=== PATIENT | female | born 1970 | race Caucasian/White ===

== ENCOUNTER 2016-11-21 10:42 | Emergency (ER) | payer BC ==
[2016-11-21] MEDS ORDERED: Sodium Chloride 0.9% 1,000 ML PRIMARY IV ONE (11:07)
[2016-11-21] MEDS ORDERED: NORMAL SALINE 10 ML SYRINGE FLUSH IVP PRN (11:07)
[2016-11-21] MEDS ORDERED: LORazepam 2 MG/1 ML VIAL IVP ONE (11:10)
[2016-11-21 11:15] VITALS: RESP 20
[2016-11-21 11:26] LABS: BASOPHILS # (AUTO) 0.04 10*3/UL; BASOPHILS % (AUTO) 0.5 % (0-1); EOSINOPHILS # (AUTO) 0.08 10*3/UL; EOSINOPHILS % (AUTO) 0.9 % (0-8); HEMATOCRIT 37.4 % (37.0-47.0); HEMOGLOBIN 11.9 g/dL (12.0-16.0); LYMPHOCYTES # (AUTO) 2.15 10*3/uL; MEAN CORPUSCULAR HEMOGLOBIN 22.2 PG (27-31); MEAN CORPUSCULAR HGB CONC 31.8 g/dL (33-37); MEAN CORPUSCULAR VOLUME 69.6 FL (81-99); MEAN PLATELET VOLUME 9.8 FL (7.4-12.2); MONOCYTES # (AUTO) 0.46 10*3/UL (0.3-0.8); MONOCYTES % (AUTO) 5.3 % (5-15); NEUTROPHILS # (AUTO) 5.96 10*3/UL; NEUTROPHILS % (AUTO) 68.4 % (50-80); RED BLOOD COUNT 5.37 10^6/uL (4.20-5.40)
[2016-11-21 11:28] LABS: PLATELET MORPHOLOGY COMMENT NORMAL MORPHOLOGY (NORM); RBC MORPHOLOGY COMMENT NORMAL MORPHOLOGY (NORM); WBC MORPHOLOGY COMMENT NORMAL MORPHOLOGY (NORM)
[2016-11-21 11:33] LABS: BLOOD UREA NITROGEN 11 mg/dL (7-22); BUN/CREATININE RATIO 18.33 (6-20); CALCIUM 9.2 mg/dL (8.7-10.7); EST GLOMERULAR FILTRATION > 60 (>60 ml/min/1.73m(2)); SERUM ALBUMIN 4.4 g/dL (3.5-4.8)
--- NOTE | 2016-11-21 11:41 | EKG ---
[address] [address] Measurements Intervals [place] Rate: 85 P: 58 CT: 196 QRS: 126 QRSD: 103 T: 79 QT: 430 QTc: 472 Interpretive Statements SINUS RHYTHM POSSIBLE LEFT ATRIAL ENLARGEMENT INDETERMINATE AXIS PROLONGED QT INTERVAL No previous ECG available for comparison Electronically Signed On 11-21-16 12:50:02 MDT by Adarsh Perez [id number]
[2016-11-21 12:13] LABS: BILIRUBIN,URINE NEGATIVE (NEG); CLARITY,URINE Slightly Cloudy (CLEAR); COLOR,URINE YELLOW; GLUCOSE, URINE (UA) NEGATIVE (NEG); NITRATE,URINE NEGATIVE (NEG); OCCULT BLOOD,URINE SMALL (NEG); PH,URINE 7.5 (5.0-8.5); PROTEIN,URINE TRACE mg/dl (NEG); UROBILINOGEN,URINE 0.2 EU/dL (0.2)
--- NOTE | 2016-11-21 12:20 | DI ---
MRI BRAIN W/O CN,11/21/2016 11:17 AM: Clinical History: Left-sided numbness and dysarthria. Previous Exam: None at this facility. Findings: Brain without contrast, and demonstrate an area of abnormally restricted diffusion corresponding with increased FLAIR signal within the right basal ganglia on the margin between the lentiform nucleus an d the external capsule. There are 2 other areas within the subcortical white matter in the parietal lobes demonstrates increa sed FLAIR signal, but this is not associated with any restricted diffusion. The cerebellopontine angles are unremarkable. Midline structures are also unremarkable. Intraorbital structures are unremarkable. The major vascular flow voids are also unremarkable. Cerebellopontine an gles are normal. Signal within the clivus is within normal limits upper portions of the cervical spin e are unremarkable. There is no evidence of Chiari malformation. Impression: Small focus of restricted diffusion with increased FLAIR signal within the external capsule just ban cent to the lentiform nucleus on the right.
[2016-11-21] MEDS ORDERED: FUROSEMIDE 10 MG/1 ML - 4 ML IVP ONE (12:21)
[2016-11-21 12:22] LABS: URINE SAMPLE TYPE CATH SPECIMEN
[2016-11-21 12:23] LABS: BACTERIA,URINE RARE; RBC,URINE 15-20 /hpf; SQUAMOUS EPITHELIAL CELL,UR RARE; WBC,URINE 20-25
[2016-11-21] MEDS ORDERED: SODIUM CHLORIDE 0.9% IV SCH (13:45)
[2016-11-21] MEDS ORDERED: LABETALOL 200 MG IV SCH (13:45)
--- NOTE | 2016-11-21 14:16 | PDOC ---
Neuro Symptoms / Deficit HPI - General Chief Complaint: Neck / Back Complaint Stated Complaint: left-sided numbness; difficulty speaking Date Seen by Provider: 11/21/16 Time Seen by Provider: 11:00 Source: POSITIVE: Patient, Other (Son) Exam Limitations: POSITIVE: No limitations Nurse's Notes Reviewed & Considered: Yes - History of Present Illness Initial Comments: The patient is a 46-year-old female. She states that at around 8:30 AM this morning she developed a "weird feeling". Around this time she was talking on the phone and her speech became slurred. She also developed "numbness" to the left side of her face and her left arm and left leg. She also states that her left arm and left leg felt "heavy". The symptoms lasted 20-30 minutes and resolved. Later this morning she went to the clinic to be evaluated and they sent her here. Patient had no head chest or abdominal pain. She presently has no neurologic complaints. She is on no medications. She states she has a "pinched nerve" in her back. She states that she is under a great deal of stress due to her family moving to [place]. She states she has been told that she has high blood pressure in the past, but apparently has not been treated for this. Body Location Affected: REPORTS: Upper Extremity (L), Lower Extremity (L), Other (Transient episode of difficulty speaking) Timing: REPORTS: Abrupt Duration: 1/2 hour Severity: Moderate Quality: REPORTS: Other (Patient denies any pain anywhere) Context: DENIES: Insect Bite, Tick Bite, Falling Injury, Head Injury, Other Character of Deficit(s): REPORTS: LUE, LLE, Facial (Numbness), Impaired Speech Associated Symptoms: DENIES: Fever, Chills, Sweating, Chest Pain, Neck Pain, Back Pain, Headache, Fainting, Seizure, Altered Mental Status, Disoriented, Confused, Agitated, Trouble Concentrating, Trouble Thinking, Decreased Responsiveness, Unresponsive, Other Usual Ability to Walk/Stand: REPORTS: Walks w/o Assistance Usual Cognition: REPORTS: Alert & Oriented x3 Similar Symptoms Previously: No Recently seen/treated/hospitalized: No Any Prior Injuries Related to Current Complaint?: No - Patient Home Medications Home Medications: Home Medications NK [No Home Medications Reported] 11/21/16 - Patient Allergies Allergies/Adverse Reactions: Allergies Allergy/AdvReac Type Severity Reaction Status Date / Time No Known Allergies Allergy Verified 11/21/16 10:56 Past Medical History - heen HEENT History: Denies History Cardiovascular History: Denies History Respiratory History: Denies History Gastrointestinal History: Denies History Genitourinary History: Denies History Endocrine History: Denies History Musculoskeletal History: Other (please comment) Prosthesis or Implant: No Additional Musculoskeletal History: BAD TROUBLE WITH ANKLE AND FEET Neurological History: Denies History, Frequent Headaches Blood Disorders: Denies History Psychiatric History: Denies History History of Sexually Transmitted Diseases: No Female Reproductive History: Ovarian Cyst Additional Female Reproductive History: MASS REMOVED FROM OVARY Obstetrical History: Denies History Cancer History: Denies History In Past Year Been Physically Harmed or Verbally Threatened: No History of MDRO: No History of Other Communicable Diseases: No Tobacco Use: Never Smoker Alcohol Use: Rarely Substance Use Type: None Previous Surgical History: Yes Type / Date of Surgery: SEE ABOVE Anesthesia Reactions: No Malignant Hyperthermia: No Significant Family History: Asthma, Cancer, Hypertension, Lung disease, Other ( please comment) Additional Family History: MS Past Medical History Reviewed: Reviewed - No Changes ROS - Limitations ROS Limitations: No Limitations Constitution: REPORTS: Denies Symptoms Respiratory: REPORTS: Denies Resp Symptoms Neurological: REPORTS: Numbness (Left-sided), Other (Difficulty speaking) Gastrointestinal: REPORTS: Denies GI Symptoms Endocrine: REPORTS: Denies Symptoms Musculoskeletal: REPORTS: Denies MS Symptoms Genitourinary: REPORTS: Denies Symptoms Eyes: REPORTS: Denies Symptoms ENT: REPORTS: Denies Symptoms Skin: REPORTS: Denies Skin Symptoms Lympathic: REPORTS: Denies Lympathic Symptoms Immunologic: POSITIVE: Denies Symptoms Psychiatric: POSITIVE: Denies Psych Symptoms Neuro Symptoms / Deficit Exam - General Appearance General Appearance: POSITIVE: No Acute Distress, Alert - HEENT HEENT: POSITIVE: Head Inspection Nml, Eyes Inspection Nml, Ears Inspection Nml, Nose Inspection Nml, Oral/Dental Inspect. Nml, Pharynx Inspect. Nml, PERRL, EOMI - Pupil Size Pupil Size: 3 mm: Bilateral (PERRLA) - Neuro / Psych Higher Functions: POSITIVE: Oriented to Person, Oriented to Place, Oriented to Time, Normal Speech, Normal Cognition, Appropriate Mood, Appropriate Affect Cranial Nerves: POSITIVE: Normal As Tested, No Evidence of Acute CVA Cerebellar: POSITIVE: Normal As Tested Peripheral Exam: POSITIVE: Sensation Normal, Motor Normal, Reflexes Normal - Neck Neck: POSITIVE: Supple, Non-Tender, No Carotid Bruit - Respiratory Respiratory: POSITIVE: No Respiratory Distress, Breath Sounds Normal - Cardiovascular Cardiovascular: POSITIVE: Regular Rate & Rhythm, Heart Sounds Normal Peripheral Pulses: Radial (R): 2+, Radial (L): 2+ - Abdomen Abdomen: Soft: (All Quadrants), Normal Bowel Sounds: (All Quadrants), Denies Tenderness: (All Quadrants), No Splenomegaly: (All Quadrants), No Hepatomegaly: (All Quadrants), No Guarding: (All Quadrants), No Rebound: (All Quadrants), No Palpable Pulse: (All Quadrants), No Palpabale Mass: (All Quadrants), No Distention: (All Quadrants), No Rigidity: (All Quadrants) - Skin Skin: POSITIVE: Intact, Normal For Race, Warm, Dry, No Rash - Extremities Extremity: Non-Tender: (All Extremities), Normal ROM: (All Extremities), Normal Inspection: (All Extremities) Neuro Symptom/Deficit Progress - Results Reviewed by me Xrays/CTs/US Reviewed by me: Yes Discussed with Radiologist: Yes Radiology Findings: MRI of brain without contrast shows a "small focus of restricted diffusion with increased FLAIR signal within the external capsule just adjacent to the lentiform nucleus. Lab Results Reviewed: Yes Lab Results:: Laboratory Results 11/21/16 11/21/16 11/21/16 Range/Units 11:15 11:32 11:58 WBC 8.71 (4.8-10.8) 10^3/uL RBC 5.37 (4.20-5.40) 10^6/uL Hgb 11.9 L (12.0-16.0) g/dL Hct 37.4 (37.0-47.0) % MCV 69.6 L (81-99) FL MCH 22.2 L (27-31) PG MCHC 31.8 L (33-37) g/dL RDW Std Deviation 43.8 (39-50) fL RDW Coeff of [place] 17.6 H (11.5-14.5) % Plt Count 314 (140-350) 10*3/uL MPV 9.8 (7.4-12.2) FL Immature Gran % (Auto) 0.2 (0-5) % Neut % (Auto) 68.4 (50-80) % Lymph % (Auto) 24.7 (10-50) % [place] % (Auto) 5.3 (5-15) % Eos % (Auto) 0.9 (0-8) % Baso % (Auto) 0.5 (0-1) % Immature Gran # (Auto) 0.02 10*3/UL Neut # (Auto) 5.96 10*3/UL Lymph # (Auto) 2.15 10*3/uL [place] # (Auto) 0.46 (0.3-0.8) 10*3/UL Eos # (Auto) 0.08 10*3/UL Baso # (Auto) 0.04 10*3/UL WBC Morphology Comment Normal morphology (NORM) Plt Morphology Comment Normal morphology (NORM) RBC Morph Comment Normal morphology (NORM) Sodium 140 (135-145) meq/L Potassium 3.5 L (3.8-5.2) meq/L Chloride 101 (98-112) meq/L Carbon Dioxide 26 (23-33) meq/L Anion Gap 13 (5-20) BUN 11 (7-22) mg/dL Creatinine 0.6 (0.50-1.20) mg/dL Estimated GFR > 60 (>60 ml/min/1.73m(2)) BUN/Creatinine Ratio 18.33 (6-20) Glucose 129 H (78-110) mg/dL Calculated Osmolality 290.0 (267-292) mOsm/kg Calcium 9.2 (8.7-10.7) mg/dL Magnesium 1.7 (1.6-2.4) mg/dL Total Bilirubin 0.4 (0.3-1.2) mg/dL AST 21 (8-39) IU/L ALT 32 (9-52) IU/L Alkaline Phosphatase 65 (38-126) IU/L Total Protein 8.1 H (6.1-8.0) g/dL Albumin 4.4 (3.5-4.8) g/dL Globulin 3.7 (2.50-4.10) g/dL Albumin/Globulin Ratio 1.10 L (1.3-2.0) mg/g TSH 1.77 (0.2700-4.2000) uIU/mL Ur Collection Type Cath specimen Urine Color Yellow Urine Clarity Slightly cloudy (CLEAR) Urine pH 7.5 (5.0-8.5) Ur Specific [place] 1.015 (1.005-1.030) Urine Protein Trace (NEG) mg/dl Urine Glucose (UA) Negative (NEG) mg/dL Urine Ketones Negative (NEG) Urine Occult Blood Small H (NEG) Urine Nitrate Negative (NEG) Urine Bilirubin Negative (NEG) Urine Urobilinogen 0.2 (0.2) EU/dL Ur Leukocyte Esterase Small (NEG) Urine RBC 15-20 (NONE) /hpf Urine WBC 20-25 (NONE) Ur Squamous Epith Cells Rare (NONE) Ur Renal Epithelial Cell None (NONE) Urine Crystals None Urine Bacteria Rare (NONE) Urine Casts None (NONE) Urine Mucus None (NONE) Urine Trichomonas None (NONE) Urine Yeast None (NONE) Ur Culture Indicated? Culture set EKG Interpreted/Reviewed By Me:: Yes (normal) EKG Interpretation:: POSITIVE: Normal Sinus Rhythm, Normal Rate, Normal Intervals, Normal [place], Normal QRS, Normal ST/T - Patient's Progress Pain Medication Addressed: POSITIVE: Not Applicable School/Work Release Addressed: POSITIVE: Not Applicable Re-Examine Time:: 13:00 Re-Examine Comment: Patient remains asymptomatic. Patient was given Ativan, 2 mg IV prior to going to the MRI scanner. Upon return from MRI and receipt of the CT scan, patient was started on labetalol, 2 mg/m my constant infusion until systolic blood pressures 160-180, and then infusional be discontinued. Re-Examine Time: 13:20 Re-Examine Comment: Case discussed with Dr. Aguero, neurologist at [facility]. Case also discussed with Dr. Davidson, ER at [facility] and Dr. Irwin, hospitalist. Patient is to transfer for patient to [facility] to the emergency room. We'll continue labetalol drip until systolic blood pressure is 180, and then we'll discontinue it. Status: POSITIVE: Unchanged Antibiotics Given: No CVA/Syncope Quality Measure Initiative: POSITIVE: EKG - Consult Consult (If Yes, Name of Consulting MD & Time Called): Yes (Dr. Rodarte, Lety , Alida) Consulting MD will see pt:: POSITIVE: Recommended Transfer Counseled: POSITIVE: Patient, Family, RE: Lab Results, RE: Radiology Results, RE : DX, RE: Need for F/U Patient Care Time - Estimated PCT Patient Care Time (In Minutes): 65 Vital Signs - Recent Vital Signs Vital Signs: Vital Signs (Last 8 hours) Temp Pulse Pulse Resp BP BP Pulse Ox 11/21/16 13:34 78 234/126 94 11/21/16 12:13 82 230/142 97 11/21/16 11:20 257/117 11/21/16 10:46 97.8 F 90 20 235/116 94 11/21/16 10:43 97.8 F 90 20 259/133 94 - VS Reviewed Vital Signs Reviewed: Yes Discharge Clinical Impression: Hypertensive crisis, Transient cerebral ischemia Discharge Disposition: Transferred to Short Term Facility Condition: Fair Date Decision to Transfer to Another Facility: 11/21/16 Time Decision to Transfer to Another Facility: 13:30
[2016-11-21 17:07] VITALS: TEMP 98
== END 2016-11-21 15:00 | disposition short-term general hospital (02) ==
LOC: ER 10:42
DX: G45.9 Transient cerebral ischemic attack, unspecified (principal); I16.0 Hypertensive urgency; R20.0 Anesthesia of skin; R47.81 Slurred speech
CPT/HCPCS: 70551; 80053; 81001; 81003; 83735; 84443; 85025; 87088; 93005; 93010; 96365; 96375; 99285; J1940; J2060; J7030; J7050